=== PATIENT | male | born 1955 | race Caucasian/White ===

== ENCOUNTER 2020-07-12 15:53 | Emergency (ER) | payer MEDICAID, OTHER ==
[~2020-07-12] VITALS: Ht 167.6 cm; Wt 79.4 kg
[2020-07-12 16:20] VITALS: BP 118/78
[2020-07-12] MEDS ORDERED: AZIT250T PO (17:57)
== END 2020-07-12 18:09 | disposition home or self-care (01) ==
LOC: ER 15:57
DX: U07.1 COVID-19 (principal); I10 Essential (primary) hypertension
CPT/HCPCS: 71046